=== PATIENT | male | born 1980 | race Caucasian/White ===

== ENCOUNTER 2024-03-08 23:22 | Inpatient (IN) | payer MEDICAID ==
[~2024-03-08] VITALS: Ht 180.3 cm; Wt 68.0 kg
[2024-03-09 00:01] LABS: BASOPHILS % (AUTO) 0.3 % (0.0-2.0); EOSINOPHILS % (AUTO) 0.1 % (0.0-7.0); HEMOGLOBIN 15.8 g/dL (12.5-16.3); LYMPHOCYTES # (AUTO) 1.7 K/uL (0.8-4.8); MEAN CORPUSCULAR HEMOGLOBIN 30.4 uug (23.8-33.4); MEAN CORPUSCULAR HGB CONC 34 g/dL (32.5-36.3); MEAN CORPUSCULAR VOLUME 88.4 fL (73.0-96.2); MONOCYTES # (AUTO) 0.9 K/uL (0.1-1.30); MONOCYTES % (AUTO) 5.9 % (0.0-11.0); NEUTROPHILS # (AUTO) 11.9 K/uL (1.8-8.9); NEUTROPHILS % (AUTO) 81.7 % (38.5-71.5); PLATELET COUNT (AUTO) 349 K/uL (152-348); RED CELL DISTRIBUTION WIDTH 13.9 % (12.1-16.2); WHITE BLOOD COUNT (AUTO) 14.5 K/uL (3.6-10.2)
[2024-03-09 00:03] LABS: DIFFERENTIAL COMMENT 1
[2024-03-09 00:06] LABS: CALCIUM 9.6 mg/dL (8.5-10.1); CARBON DIOXIDE 32 mmol/L (21-32); CHLORIDE 99 mmol/L (98-107); GLUCOSE 128 mg/dL (74-106); POTASSIUM 4.3 mmol/L (3.5-5.1); SODIUM SERUM 141 mmol/L (136-145); UREA NITROGEN, BLOOD 17 mg/dL (7-18)
[2024-03-09] MEDS ORDERED: ONDANSETRON ODT 4 MG TAB.RAPDIS ONE ×2 (00:12→03:32)
[2024-03-09] MEDS: ONDANSETRON ODT 4 MG TAB.RAPDIS SL ONE ×2 (00:16→04:26)
[2024-03-09 00:20] LABS: ALANINE AMINOTRANSFERASE 23 U/L (16-63); ALBUMIN 4.5 g/dL (3.4-5.0); ALKALINE PHOSPHATASE 87 U/L (50-136); ASPARTATE AMINOTRANSFERASE 12 U/L (15-37); BILIRUBIN,DIRECT 0.1 mg/dL (0.0-0.2); BILIRUBIN,TOTAL 0.4 mg/dL (0.2-1.0); NT-PRO BNP 101 pg/mL (0-125); TOTAL PROTEIN, SERUM 8.7 g/dL (6.4-8.2)
[2024-03-09] MEDS ORDERED: ASPIRIN 81 MG TAB.CHEW ONE (04:45)
[2024-03-09] MEDS: ASPIRIN 81 MG TAB.CHEW PO STA (04:55)
[2024-03-09] MEDS ORDERED: METH-815 PO (06:26)
[2024-03-09] MEDS ORDERED: PROP80CA51 PO (06:41)
[2024-03-09] MEDS ORDERED: DIPH25CA83 PO (06:41)
[2024-03-09] MEDS ORDERED: ACET-2154 PO (06:41)
[2024-03-09] MEDS ORDERED: IBUP-76 PO (06:41)
[2024-03-09] MEDS ORDERED: ACETAMINOPHEN 325 MG TABLET ONE (11:31)
[2024-03-09] MEDS: ACETAMINOPHEN 325 MG TABLET PO PRN (11:34)
[2024-03-09] MEDS ORDERED: ENOXAPARIN SODIUM 40 MG/0.4 ML DISP.SYRIN SQ ONE (12:28)
[2024-03-09] MEDS: ENOXAPARIN SODIUM 40 MG/0.4 ML DISP.SYRIN SQ SCH (12:47)
[2024-03-09] MEDS ORDERED: diphenhydrAMINE 25 MG CAP PO PRN (14:30)
[2024-03-09] MEDS ORDERED: IBUPROFEN 400 MG TABLET ONE (16:20)
[2024-03-09] MEDS: IBUPROFEN 200 MG TABLET PO PRN (16:24)
[2024-03-09] MEDS: PROPRANOLOL HCL 40 MG TABLET PO SCH (21:23)
[2024-03-10] MEDS ORDERED: ONDANSETRON 4 MG/2 ML VIAL ONE (04:31)
[2024-03-10] MEDS: ONDANSETRON 4 MG/2 ML VIAL IV PRN (04:33)
[2024-03-10] MEDS ORDERED: IBUPROFEN 400 MG TABLET PO PRN (05:00)
[2024-03-10] MEDS ORDERED: diphenhydrAMINE 50 MG CAPSULE PO PRN (05:00)
[2024-03-10 08:08] LABS: BASOPHILS # (AUTO) 0.1 K/UL (0.0-0.2); BASOPHILS % (AUTO) 0.6 % (0.0-2.0); EOSINOPHILS # (AUTO) 0.1 K/uL (0.0-0.7); EOSINOPHILS % (AUTO) 0.7 % (0.0-7.0); HEMATOCRIT 43.6 % (36.7-47.1); LYMPHOCYTES # (AUTO) 2.3 K/uL (0.8-4.8); LYMPHOCYTES % (AUTO) 21.9 % (20.5-51.5); MEAN CORPUSCULAR HEMOGLOBIN 30.4 uug (23.8-33.4); MEAN CORPUSCULAR HGB CONC 35 g/dL (32.5-36.3); MEAN CORPUSCULAR VOLUME 88.1 fL (73.0-96.2); MONOCYTES # (AUTO) 0.9 K/uL (0.1-1.30); MONOCYTES % (AUTO) 8.1 % (0.0-11.0); NEUTROPHILS # (AUTO) 7.2 K/uL (1.8-8.9); NEUTROPHILS % (AUTO) 68.7 % (38.5-71.5); PLATELET COUNT (AUTO) 352 K/uL (152-348); RED BLOOD CELL COUNT(AUTO) 4.95 MIL/uL (4.06-5.63); RED CELL DISTRIBUTION WIDTH 13.9 % (12.1-16.2); WHITE BLOOD COUNT (AUTO) 10.5 K/uL (3.6-10.2)
[2024-03-10 08:14] LABS: DIFFERENTIAL COMMENT 1
[2024-03-10 08:39] LABS: CREATININE 0.8 mg/dL (0.6-1.3); MAGNESIUM 2.3 mg/dL (1.8-2.4); PHOSPHOROUS 3.9 mg/dL (2.5-4.9); POTASSIUM 4.1 mmol/L (3.5-5.1)
[2024-03-10] MEDS ORDERED: ONDANSETRON 4 MG/2 ML VIAL IV PRN (09:15)
[2024-03-10 11:40] VITALS: BP 94/64; TEMP 97.5; O2SAT 97
[2024-03-10 19:45] VITALS: BP 97/80; TEMP 98.3; O2SAT 98
[2024-03-11 01:17] VITALS: BP 94/60; TEMP 97.9; O2SAT 95
[2024-03-11 05:05] VITALS: BP 94/60; TEMP 98.3; O2SAT 96
[2024-03-11 08:00] VITALS: BP 99/61; TEMP 98.3; O2SAT 96
[2024-03-11 11:40] VITALS: BP_SYST 105; BP_SYST 95; BP_DIAS 60; TEMP 97.8; O2SAT 96
[2024-03-11 12:41] VITALS: TEMP 98.3
== END 2024-03-11 15:00 | disposition home or self-care (01) | DRG 203 ==
LOC: ER 23:22 → TRANSITION 03-09 11:21 → TELE3 03-10 08:30 → MEDSURG3 03-11 08:52
PROVIDERS: ADMIT Nurse Practitioner Acute Care; ATTEND Nurse Practitioner Acute Care
DX: M94.0 Chondrocostal junction syndrome [Tietze] (principal); D72.829 Elevated white blood cell count, unspecified; F11.11 Opioid abuse, in remission; F17.210 Nicotine dependence, cigarettes, uncomplicated; D75.839 Thrombocytosis, unspecified; R00.0 Tachycardia, unspecified; Z82.49 Family history of ischemic heart disease and other diseases of the circulatory system; Z79.899 Other long term (current) drug therapy
CPT/HCPCS: 36415; 71045; 83735; 84100; 84484; 85025; 85730; 93307; A4663; G0378; J1650; J2405; Q0162